=== PATIENT | male | born 1995 | race Caucasian/White ===

== ENCOUNTER 2019-12-05 20:28 | Emergency (ER) | payer MEDICAID ==
[~2019-12-05] VITALS: Ht 177.8 cm; Wt 91.0 kg
[2019-12-05] MEDS ORDERED: TRAMADOL 50MG TABLET PO ONE (21:30)
[2019-12-05] MEDS ORDERED: KETOROLAC 30MG/ML VIAL IM ONE (21:30)
[2019-12-06 00:25] VITALS: BP 132/75
== END 2019-12-06 00:32 | disposition home or self-care (01) ==
LOC: ER 20:28
DX: M54.5 Low back pain (principal)
CPT/HCPCS: 72100; 96372; 99283; J1885